=== PATIENT | female | born 1985 | race Caucasian/White ===

== ENCOUNTER 2023-06-23 07:10 | Inpatient (IN) ==
[2023-06-23] MEDS ORDERED: Witch Hazel PAD JAR TOPICAL PRN (07:22)
[2023-06-23] MEDS ORDERED: Oxytocin 10 UNITS/ML 1 ML VIAL IM PRN (07:22)
[2023-06-23] MEDS ORDERED: Dibucaine 1% OINT 28.35 GM TUBE PR PRN (07:22)
[2023-06-23] MEDS ORDERED: Glycerin ADULT 2.4 gm SUPP PR PRN (07:22)
[2023-06-23] MEDS ORDERED: Lactated Ringers 1000 ml BAG 1,000 ML IV SCH (08:00)
[2023-06-24 09:16] VITALS: BP 116/81
[2023-06-24 09:30] LABS: ABS Basophils 0.1 10^3/uL (0.0-0.1); ABS Eosinophils 0.2 10^3/uL (0.0-0.5); ABS Lymphocytes 1.5 10^3/uL (1.0-4.8); ABS Monocytes 0.4 10^3/uL (0.0-0.9); ABS Neutrophils 6.6 10^3/uL (1.5-7.6); ABS Nucleated RBC 0.01 10^3/ul; Eosinophil % 2.5 %; Hematocrit 36.9 % (35-45); Hemoglobin 13.1 g/dL (11.5-14.3); Lymphocyte % 16.9 %; Mean Corpuscular Hemoglobin 29.3 pg (27-33); Mean Corpuscular Hgb Conc 35.5 g/dL (31-36); Mean Corpuscular Volume 82.5 fL (80-97); Mean Platelet Volume 8.9 fL (7.5-11.2); Nucleated Red Blood Cells % 0.1 %/100WBC (0.0-0.8); Platelet Count 204 10^3/uL (150-450); Red Blood Count 4.47 10^6/uL (3.63-4.92); White Blood Count 8.8 10^3/uL (3.8-11.8)
== END 2023-06-24 19:20 | disposition home or self-care (01) | DRG 560 ==
LOC: MCHOBOUT 07:10 → MCHOB 07:18
PROVIDERS: ADMIT Registered Nurse; ATTEND Registered Nurse